=== PATIENT | male | born 2000 | race Caucasian/White ===

== ENCOUNTER 2018-05-07 23:30 | Emergency (ER) | payer OTHER ==
--- NOTE | 2018-05-07 23:49 | EDPHY ---
H & P Stated Complaint: recent dx of whooping cough treated - tonite cough hard pass out Time Seen by Provider: 05/07/18 23:48 HPI/ROS: HPI CHIEF COMPLAINT: Syncope HISTORY OF PRESENT ILLNESS: 18-year-old male, otherwise healthy, was recently diagnosed and treated for whooping cough, completed antibiotics, states that he was using the bathroom tonight and sneezed and coughed at the same time. He stood up from the toilet when this was happening got very lightheaded and had a syncopal episode. Denies any pain anywhere denies trauma, denies head strike. Denies chest pain or shortness of breath. He states he now feels fine but did come to the emergency room due to the syncopal episode. In terms of his whooping cough he has been treated, and states that he is feeling better. No fever. Past Medical History: No significant medical history Past Surgical History: No significant surgical history Social History: Denies drugs alcohol tobacco. Family History: Noncontributory ROS REVIEW OF SYSTEMS: 10 Systems were reviewed and negative with the exception of the elements mentioned in the history of present illness. Exam Constitutional appears well nontoxic no acute distress, triage nursing summary reviewed, vital signs reviewed, awake/alert. Eyes normal conjunctivae and sclera, EOMI, PERRLA. HENT normal inspection, atraumatic, moist mucus membranes, no epistaxis, neck supple/ no meningismus, no raccoon eyes. Respiratory clear to auscultation bilaterally, normal breath sounds, no respiratory distress, no wheezing. Cardiovascular rate normal, regular rhythm, no murmur, no edema, distal pulses normal. Gastrointestinal soft, non-tender, no rebound, no guarding, normal bowel sounds, no distension, no pulsatile mass. Genitourinary no CVA tenderness. Musculoskeletal no midline vertebral tenderness, full range of motion, no calf swelling, no tenderness of extremities, no meningismus, good pulses, neurovascularly intact. Skin pink, warm, & dry, no rash, skin atraumatic. Neurologic awake, alert and oriented x 3, AAOx3, moves all 4 extremities equally, motor intact, sensory intact, CN II-XII intact, normal cerebellar, normal vision, normal speech. Psychiatric normal mood/affect. Heme/Lymph/Immune no lymphadenopathy. Differential Diagnosis: Includes but is not limited to in a particular order vasovagal syncope, orthostatic syncope, micturition syncope, cardiac arrhythmia , dehydration Medical Decision Making: Plan for this patient: Chest x-ray, EKG, IV fluid bolus, check basic electrolytes. And re-evaluate. Re-evaluation: EKG interpretation by me on record in [employer] system. Impression time of EKG 2357, this is sinus rhythm rate of 65, no signs of cardiac arrhythmia acute ischemia. ED x-ray chest one view negative for acute cardiopulmonary disease. 1244: Blood work reviewed unremarkable. Normal electrolytes. Vital signs are stable. Chest shows no evidence acute cardiopulmonary disease, EKG nonischemic with no signs of cardiac arrhythmia. Patient resting comfortably no complaints Recommend he stays well hydrated drink lots of fluids Return emergency room if worsening symptoms he understands. Source: Patient - Personal History Current Tetanus/Diphtheria Vaccine: Yes Current Tetanus Diphtheria and Acellular Pertussis (TDAP): Yes - Medical/Surgical History Hx Asthma: No Hx Chronic Respiratory Disease: No Hx Diabetes: No Hx Cardiac Disease: No Hx Renal Disease: No Hx Cirrhosis: No Hx Alcoholism: No Hx HIV/AIDS: No Hx Splenectomy or Spleen Trauma: No Other PMH: whooping cough - Social History Smoking Status: Never smoked Constitutional: Initial Vital Signs Temperature (C) 36.9 C 05/07/18 23:33 Heart Rate 63 05/07/18 23:33 Respiratory Rate 18 05/07/18 23:33 Blood Pressure 128/78 H 05/07/18 23:33 O2 Sat (%) 93 05/07/18 23:33 O2 Delivery Mode Room Air Allergies/Adverse Reactions: amoxicillin Allergy (Verified 05/07/18 23:32) Home Medications: Medication Instructions Recorded Albuterol 05/07/18 NK [No Known Home Meds] 05/07/18 Medical Decision Making - Diagnostics Imaging Results: Imaging Impressions Chest X-Ray 05/07/18 23:51 Impression: 1. No definite pneumonia. 2. No pneumothorax. - Data Points Laboratory Results: Laboratory Results 05/08/18 00:05 05/08/18 00:05 05/08/18 05/08/18 00:05 00:05 WBC 8.20 10^3/uL 10^3/uL (3.80-9.50) RBC 5.50 10^6/uL 10^6/uL (4.40-6.38) Hgb 16.3 g/dL g/dL (13.7-17.5) Hct 46.8 % % (40.0-51.0) MCV 85.1 fL fL (81.5-99.8) MCH 29.6 pg pg (27.9-34.1) MCHC 34.8 g/dL g/dL (32.4-36.7) RDW 12.1 % % (11.5-15.2) Plt Count 220 10^3/uL 10^3/uL (150-400) MPV 10.9 fL fL (8.7-11.7) Neut % (Auto) 66.4 % % (39.3-74.2) Lymph % (Auto) 25.5 % % (15.0-45.0) [place] % (Auto) 6.0 % % (4.5-13.0) Eos % (Auto) 1.3 % % (0.6-7.6) Baso % (Auto) 0.7 % % (0.3-1.7) Nucleat RBC Rel Count 0.0 % % (0.0-0.2) Absolute Neuts (auto) 5.44 10^3/uL 10^3/uL (1.70-6.50) Absolute Lymphs (auto) 2.09 10^3/uL 10^3/uL (1.00-3.00) Absolute Monos (auto) 0.49 10^3/uL 10^3/uL (0.30-0.80) Absolute Eos (auto) 0.11 10^3/uL 10^3/uL (0.03-0.40) Absolute Basos (auto) 0.06 10^3/uL 10^3/uL (0.02-0.10) Absolute Nucleated RBC 0.00 10^3/uL 10^3/uL (0-0.01) Immature Gran % 0.1 % % (0.0-1.1) Immature Gran # 0.01 10^3/uL 10^3/uL (0.00-0.10) Sodium 139 mEq/L mEq/L (135-145) Potassium 3.9 mEq/L mEq/L (3.3-5.0) Chloride 102 mEq/L mEq/L (97-110) Carbon Dioxide 26 mEq/l mEq/l (22-31) Anion Gap 11 mEq/L mEq/L (8-16) BUN 21 mg/dL mg/dL (7-23) Creatinine 1.1 mg/dL mg/dL (0.7-1.3) Estimated GFR > 60 Glucose 82 mg/dL mg/dL (70-100) Calcium 9.9 mg/dL mg/dL (8.5-10.4) Medications Given: Discontinued Medications Sodium Chloride (Ns) 1,000 mls @ 0 mls/hr IV ONCE ONE; Wide Open PRN Reason: Protocol Stop: 05/07/18 23:52 Last Admin: 05/08/18 00:04 Dose: 1,000 mls Departure - Departure Disposition: Home, Routine, Self-Care Clinical Impression: Syncope Qualifiers: Syncope type: unspecified Qualified Code(s): R55 - Syncope and collapse Condition: Good Instructions: Syncope (ED) Additional Instructions: 1. Drink lots of fluids stay well-hydrated 2. Return emergency room if you have worsening symptoms questions or concerns this includes passing out again. Referrals: GILBERTO MARTIN [Other] - As per Instructions
[2018-05-07] MEDS ORDERED: NS 1,000 ML IV ONE (23:51)
[2018-05-08 00:14] LABS: PLATELET COUNT 220 10^3/uL (150-400)
[2018-05-08 00:50] VITALS: BP 124/62
--- NOTE | 2018-05-08 07:21 | CPEKG ---
Test Reason : OPEN Blood Pressure : / mmHG Vent. Rate : 065 BPM Atrial Rate : 066 BPM P-R Int : 155 ms QRS Dur : 104 ms QT Int : 405 ms P-R-T Axes : -01 039 001 degrees QTc Int : 422 ms Sinus arrhythmia Confirmed by Pedro Byrd ([id number]) on 05/08/2018 7:20:45 AM Referred By: Confirmed By:Pedro Byrd
== END 2018-05-08 00:49 | disposition home or self-care (01) ==
DX: R55 Syncope and collapse (principal); E86.9 Volume depletion, unspecified; Z86.19 Personal history of other infectious and parasitic diseases